=== PATIENT | female | born 1970 | race Caucasian/White ===

== ENCOUNTER 2016-12-17 00:03 | Emergency (ER) | payer OTHER ==
[2016-12-17] MEDS ORDERED: Lorazepam 2 MG/ML VIAL ONE (00:30)
[2016-12-17] MEDS ORDERED: Acetaminophen 500 MG TAB ONE (00:31)
--- NOTE | 2016-12-17 01:24 | ERRECORD ---
[facility] EMERGENCY RECORD PAST MEDICAL HISTORY (00:12 LU) MEDICAL HISTORY: Flu vaccine up to date, Date of immunization: 2015, Tetanus immunization up to date, Date of immunization: w/in last 10 yrs, Pneumococcal vaccine up to date, Date of immunization: 2011 Past medical history includes gynecologic history, endometriosis, Past medical history includes history of malignancy, primary site breast, treated with chemotherapy, treated with surgery, double mastectomy 09/28/2011, Past medical history includes history of obesity. DIABETES. FEMALE SURGICAL HISTORY: Surgical history of appendectomy, Date of surgery 05/2003, Surgical history of hysterectomy, Notes: SANDRA, Surgical history of mastectomy, of both breasts, Date of surgery 09/28/2011, Surgical history of orthopedic surgery, right knee, Date of surgery 1986, Notes: meniscotomy. PSYCHIATRIC HISTORY: Psychiatric history includes, anxiety. SOCIAL HISTORY: Patient denies alcohol use, Patient denies drug use, Patient has no smoking history. KNOWN ALLERGIES latex gloves NKDA (Unconfirmed) CURRENT MEDICATIONS Monique: TABLET : Strength - 180 mg : ORAL Patient Dose: once a day. (00:13 ) Lexapro: TABLET : Strength - 10 mg : ORAL Patient Dose: once a day. (00:13 LU) metFORMIN: TABLET : Strength - 500 mg : ORAL Patient Dose: 1 tab(s) Oral 2 times a day. (00:14 LU) omeprazole: CAPSULE,DELAYED RELEASE (ENTERIC COATED) : Strength - 20 mg : ORAL Patient Dose: 1 tab(s) Oral once a day. (00:14 LU) VITAL SIGNS VITAL SIGNS: BP: 183/98, Pulse: 89, Resp: 22, Temp: 98.0 (Oral), Pain: 0, O2 sat: 99 on Room Air, Time: 12/17/2016 00:08. (00:08 LU) BP: 135/93, Pulse: 78, Resp: 20 (Non-Labored), Pain: 0, O2 sat: 98 on Room Air, Time: 12/17/2016 00:24. (00:24 KSPL) BP: 171/88, Pulse: 67, Resp: 20 (Non-Labored), Pain: 2, O2 sat: 97 on Room Air, Time: 12/17/2016 00:49. (00:49 KSPL) BP: 124/75, Time: 12/17/2016 01:00. (01:00 KSPL) MEDICATION ADMINISTRATION SUMMARY Drug Name: LORazepam injection, Dose Ordered: 2 mg, Route: Intramuscular, Status: Given, Time: 00:39 12/17/2016, &a-1R&a+25V*p+0X*k2503J*c202B*c15G*c2P*p-0X&a-25V&a+1R Name: Milton Bonner : 1970 F46 MedRec: [id number] AcctNum: [id number] Prepared: ThuDec 17, 2016 01:05 by Interface Page 1 of 2 pMD [facility] EMERGENCY RECORD Drug Name: Tylenol Extra Strength, Dose Ordered: 1000 mg, Route: Oral, Status: Given, Time: 00:38 12/17/2016, Detailed record available in Medication Service section. PROBLEM LIST No recorded problems DIAGNOSIS (00:51 JPIP) FINAL: PRIMARY: panic attack, ADDITIONAL: ANXIETY DISORDER UNSPECIFIED. PRESCRIPTION citalopram: TABLET : 20 mg : ORAL : Quantity: 1 Unit: tab(s) Route: ORAL Schedule: once a day (in the morning) Dispense: 30 May substitute. Refills: No Refills POTENTIAL SEVERE INTERACTION: Lexapro Override Rationale: Patient no longer on medication POTENTIAL SEVERE INTERACTION: omeprazole Override Rationale: Benefits outweigh risks. (00:41 JPIP) NOTES: No refills. (00:41 JPIP) LORazepam oral: TABLET : 1 mg : ORAL : Quantity: 1 Unit: tab(s) Route: ORAL Schedule: null Dispense: 10 May substitute. Refills: No Refills . (00:42 JPIP) NOTES: No refills. (00:42 JPIP) DISPOSITION PATIENT: Disposition Type: Discharge, Disposition: *Discharge Home, Condition: Good. (00:51 JPIP) Patient left the department. (01:02 KSPL) Horton: ZEKE=DO Zaidi Joseph KSCASSANDRA=SAVANNAH Grullon, Mikala MCFARLANER=SAVANNAH Padgett Macy &a-1R&a+25V*p+0X*d2329D*c202B*c15G*c2P*p-0X&a-25V&a+1R Name: Milton Bonner Remington : 1970 F46 MedRec: [id number] AcctNum: [id number] Prepared: Trent Dec 17, 2016 01:05 by Interface Page 2 of 2 pMD MTDD
--- NOTE | 2016-12-17 01:30 | PICIS ---
[facility] EMERGENCY RECORD TRIAGE (00:10 LU) TRIAGE NOTES: ANXIETY ATTACK-UNABLE TO CATCH BREATH. STARTED THIS EVENING AROUND 19:00. (00:10 LU) PATIENT: NAME: Milton Bonner, AGE: 46, GENDER: female, : Thu1970, TIME OF GREET: ThuDec 17, 2016 00:03, PREFERRED LANGUAGE: Kyrgyz, ETHNICITY: Not or , ECODE BILLING MAP: [facility], SSN: [id number], Zip Code: [address], KG WEIGHT: [phone], PHONE: , , , PERSON ID: [id number], PAYMENT: [employer], PCP: CLEMENCIA. (00:10 LU) COMPLAINT: PANIC ATTACK. (00:10 LU) ADMISSION: URGENCY: 4 Non Urgent, ADMISSION SOURCE: Home, TRANSPORT: CAR, BED: ER -03. (00:10 LU) ASSESSMENT: Assessment: ANXIETY ATTACK. (00:12 LU) PAIN: No complaint of pain. (00:12 LU) SIRS SCORING: Heart Rate 55-109 (0), Temp range 96.8-101.1 (0), respiratory rate 12-24 (0), Mental Status altered: no (0). (00:12 LU) TRIAGE SCREENING: Patient denies suicidal ideation, Patient denies presence of domestic violence. (00:12 LU) LMP: LMP: Hysterectomy. (00:12 LU) TREATMENTS IN PROGRESS: Medications Given, NONE. (00:12 LU) PROVIDERS: TRIAGE NURSE: Idalmis Padgett RN. (00:10 LU) VITAL SIGNS: BP 183/98, Pulse 89, Resp 22, Temp 98.0, (Oral), Pain 0, O2 Sat 99, on Room Air, Time 12/17/2016 00:08. (00:08 LU) PREVIOUS VISIT ALLERGIES: NKDA. (00:10 LU) NKDA. (00:12 LU) KNOWN ALLERGIES latex gloves NKDA (Unconfirmed) CURRENT MEDICATIONS Monique: TABLET : Strength - 180 mg : ORAL Patient Dose: once a day. (00:13 LU) Lexapro: TABLET : Strength - 10 mg : ORAL Patient Dose: once a day. (00:13 LU) metFORMIN: TABLET : Strength - 500 mg : ORAL Patient Dose: 1 tab(s) Oral 2 times a day. (00:14 LU) omeprazole: CAPSULE,DELAYED RELEASE (ENTERIC COATED) : Strength - 20 mg : ORAL Patient Dose: 1 tab(s) Oral once a day. (00:14 LU) VITAL SIGNS VITAL SIGNS: BP: 183/98, Pulse: 89, Resp: 22, Temp: 98.0 (Oral), Pain: 0, O2 sat: 99 on Room Air, Time: 12/17/2016 00:08. (00:08 LU) BP: 135/93, Pulse: 78, Resp: 20 (Non-Labored), Pain: 0, O2 sat: 98 on &a-1R&a+25V*p+0X*l5973Y*c202B*c15G*c2P*p-0X&a-25V&a+1R Name: Milton Bonner : 1970 F46 MedRec: [id number] AcctNum: [id number] Prepared: ThuDec 17, 2016 01:05 by Interface Page 1 of 4 pMD [facility] EMERGENCY RECORD Room Air, Time: 12/17/2016 00:24. (00:24 KSPL) BP: 171/88, Pulse: 67, Resp: 20 (Non-Labored), Pain: 2, O2 sat: 97 on Room Air, Time: 12/17/2016 00:49. (00:49 KSPL) BP: 124/75, Time: 12/17/2016 01:00. (01:00 KSPL) NURSING ASSESSMENT: FOCUSED (00:16 KSPL) CONSTITUTIONAL: Complex assessment performed, Patient arrives ambulatory, Gait steady, History obtained from patient, Patient appears, anxious, Patient cooperative, Patient alert, Oriented to person, place and time, Skin warm, Skin dry, Skin normal in color, Mucous membranes pink, Mucous membranes moist, Patient is well-groomed, Patient complains of anxiety attack. PAIN: Patient rates pain as 0 out of 10. EYES: Focused eye assessment finding include pupils equally round and reactive to light, Left pupil 2 mm in size, Right pupil 2 mm in size, Redness, bilaterally. NEURO: Focused neuro assessment findings include patient alert, cooperative, No facial droop noted, Speech coherent, no weakness, no numbness, No loss of consciousness. GCS: Eye opening: (4) - Spontaneous, Verbal: (5) - Oriented/conversive, Motor: (6) - Obeys commands/Spontaneous, GCS Total: 15. SAFETY: Side rails up, Cart/Stretcher in lowest position, Family at bedside, Call light within reach, Hospital ID band on, Patient in view of the nursing station. NURSING ASSESSMENT: RESPIRATORY /CHEST (00:21 KSPL) RESPIRATORY/CHEST: Breath sounds clear, Respiratory assessment findings include respiratory effort easy, Respirations regular, Conversing normally, Neck and chest exam findings include trachea midline, Chest expansion equal, Chest movement symmetrical, no signs of distress, no retractions noted. SAFETY: Side rails up, Cart/Stretcher in lowest position, Family at bedside, Call light within reach, Hospital ID band on, Patient in view of the nursing station, Notes: pt advised to concentrate on breathing and to take slow breaths, in the nose and out the mouth, pt verbalized understanding. MEDICATION ADMINISTRATION SUMMARY Drug Name: LORazepam injection, Dose Ordered: 2 mg, Route: Intramuscular, Status: Given, Time: 00:39 12/17/2016, Drug Name: Tylenol Extra Strength, Dose Ordered: 1000 mg, Route: Oral, Status: Given, Time: 00:38 12/17/2016, Detailed record available in Medication Service section. MEDICATION SERVICE LORazepam injection: Order: LORazepam injection (lorazepam) - Dose: 2 mg : Intramuscular Schedule: Now &a-1R&a+25V*p+0X*q2464E*c202B*c15G*c2P*p-0X&a-25V&a+1R Name: Milton Bonner : 1970 F46 MedRec: [id number] AcctNum: [id number] Prepared: ThuDec 17, 2016 01:05 by Interface Page 2 of 4 pMD [facility] EMERGENCY RECORD Ordered by: Craig Zaidi DO Entered by: Craig Zaidi DO ThuDec 17, 2016 00:28 , Acknowledged by: Mikala Grullon RN ThuDec 17, 2016 00:28 Documented as given by: Mikala Grullon RN ThuDec 17, 2016 00:39 Patient, Medication, Dose, Route and Time verified prior to administration. IM medication, Amount given: 2 mg, Medication administered to right deltoid, Patient appears Awake and alert- acceptable, Correct patient, time, route, dose and medication confirmed prior to administration, Patient advised of actions and side-effects prior to administration, Allergies confirmed and medications reviewed prior to administration, Patient in position of comfort, Side rails up, Cart in lowest position, Family at bedside, Call light in reach, R deltoid cleaned with alcohol and allowed to dry prior to IM admin, IM pushed slow, pt tolerated well. Tylenol Extra Strength: Order: Tylenol Extra Strength (acetaminophen) - Dose: 1000 mg : Oral Schedule: Now Ordered by: Craig Zaidi DO Entered by: Craig Zaidi DO ThuDec 17, 2016 00:28 , Acknowledged by: Mikala Grullon RN ThuDec 17, 2016 00:28 Documented as given by: Mikala Grullon RN ThuDec 17, 2016 00:38 Patient, Medication, Dose, Route and Time verified prior to administration. Amount given: 1000 mg, Site: Medication administered P.O., Patient appears Awake and alert- acceptable, Correct patient, time, route, dose and medication confirmed prior to administration, Patient advised of actions and side-effects prior to administration, Allergies confirmed and medications reviewed prior to administration, Patient in position of comfort, Side rails up, Cart in lowest position, Family at bedside, Call light in reach, pt swallowed pills with water, tolerated well. PAST MEDICAL HISTORY (00:12 LU) MEDICAL HISTORY: Flu vaccine up to date, Date of immunization: 2015, Tetanus immunization up to date, Date of immunization: w/in last 10 yrs, Pneumococcal vaccine up to date, Date of immunization: 2011 Past medical history includes gynecologic history, endometriosis, Past medical history includes history of malignancy, primary site breast, treated with chemotherapy, treated with surgery, double mastectomy 09/28/2011, Past medical history includes history of obesity. DIABETES. FEMALE SURGICAL HISTORY: Surgical history of appendectomy, Date of surgery 05/2003, Surgical history of hysterectomy, Notes: SANDRA, Surgical history of mastectomy, of both breasts, Date of surgery 09/28/2011, Surgical history of orthopedic surgery, right knee, Date of surgery 1986, Notes: meniscotomy. PSYCHIATRIC HISTORY: Psychiatric history includes, anxiety. SOCIAL HISTORY: Patient denies alcohol use, Patient denies &a-1R&a+25V*p+0X*d8414D*c202B*c15G*c2P*p-0X&a-25V&a+1R Name: Milton Bonner : 1970 F46 MedRec: [id number] AcctNum: [id number] Prepared: ThuDec 17, 2016 01:05 by Interface Page 3 of 4 pMD [facility] EMERGENCY RECORD drug use, Patient has no smoking history. EVENTS TRANSFER: Triage to Emergency Emergency Room -03. (ThuDec 17, 2016 00:10 LU) Removed from Emergency Emergency Room -03. (01:02 KSPL) O2SAT INTERPRETATION (00:32 JPIP) O2SAT: Continuous pulse oximetry, Oxygen saturation 98%, on room air, Oxygen saturation interpretation: Normal, No intervention required. PROBLEM LIST No recorded problems DIAGNOSIS (00:51 JPIP) FINAL: PRIMARY: panic attack, ADDITIONAL: ANXIETY DISORDER UNSPECIFIED. DISPOSITION PATIENT: Disposition Type: Discharge, Disposition: *Discharge Home, Condition: Good. (00:51 JPIP) Patient left the department. (01:02 KSPL) INSTRUCTION (00:43 JPIP) DISCHARGE: PANIC ATTACK, ANXIETY REACTION. SPECIAL: Follow up with Primary Care Physician within 72 hours Return to the Emergency Department for increased symptoms problems or concerns. PRESCRIPTION citalopram: TABLET : 20 mg : ORAL : Quantity: 1 Unit: tab(s) Route: ORAL Schedule: once a day (in the morning) Dispense: 30 May substitute. Refills: No Refills POTENTIAL SEVERE INTERACTION: Lexapro Override Rationale: Patient no longer on medication POTENTIAL SEVERE INTERACTION: omeprazole Override Rationale: Benefits outweigh risks. (00:41 JPIP) NOTES: No refills. (00:41 JPIP) LORazepam oral: TABLET : 1 mg : ORAL : Quantity: 1 Unit: tab(s) Route: ORAL Schedule: null Dispense: 10 May substitute. Refills: No Refills . (00:42 JPIP) NOTES: No refills. (00:42 JPIP) Horton: ZEKE=DO Zaidi Joseph KSPL=SAVANNAH Grullon, Mikala LEIGH=SAVANNAH Padgett, Idalmis &a-1R&a+25V*p+0X*p1054D*c202B*c15G*c2P*p-0X&a-25V&a+1R Name: Milton Bonner : 1970 F46 MedRec: [id number] AcctNum: [id number] Prepared: ThuDec 17, 2016 01:05 by Interface Page 4 of 4 pMD MTDD
== END 2016-12-17 01:00 | disposition home or self-care (01) ==
LOC: BURERS 00:03
DX: F41.0 Panic disorder [episodic paroxysmal anxiety] (principal); F41.9 Anxiety disorder, unspecified; E66.9 Obesity, unspecified; E11.9 Type 2 diabetes mellitus without complications
CPT/HCPCS: 96372; J2060

== ENCOUNTER 2017-12-11 01:15 | Emergency (ER) | payer OTHER ==
[2017-12-11] MEDS ORDERED: Diazepam 10 MG/2 ML SYRINGE ONE (01:40)
[2017-12-11] MEDS ORDERED: Ketorolac Tromethamine 60 MG/2 ML VIAL ONE (01:40)
--- NOTE | 2017-12-11 07:11 | RAD ---
LUMBAR SPINE 3 VIEWS: Date: 12/11/17 No acute fracture is demonstrated. There is some very slight anterior wedging of T11 and T12, but I d oubt it is acute. Unless there was pain near the thoracolumbar junction, I would tend to downplay the finding. There is disc space narrowing with osteophytes at L5-S1. If there are radicular symptoms, a MRI to investigate this area could be useful. The SI joints appear normal. IMPRESSION: 1. No definite fracture. 2. Degenerative disc disease at L5-S1. 3. Slight anterior wedging of T11 and T12, thought more likely to be old than new. Correlate with cl inical symptoms. CODE T. POS: HOME
== END 2017-12-11 02:25 | disposition home or self-care (01) ==
LOC: BURERS 01:15
DX: M54.5 Low back pain (principal); E66.9 Obesity, unspecified; E11.9 Type 2 diabetes mellitus without complications; F41.9 Anxiety disorder, unspecified; Z79.84 Long term (current) use of oral hypoglycemic drugs; Z79.899 Other long term (current) drug therapy; Z85.3 Personal history of malignant neoplasm of breast; W19.XXXA Unspecified fall, initial encounter
CPT/HCPCS: 72100; 96372; J1885; J3360

== ENCOUNTER 2018-01-13 18:30 | Emergency (ER) | payer OTHER ==
[2018-01-13 19:22] LABS: #Basophils 0.1 thou/uL (0.0-0.2); #Eosinphils 0.1 thou/uL (0.0-0.7); #Lymphocytes 3.1 thou/uL (1.20-3.40); #Monocytes 0.6 thou/uL (0.11-0.59); #Neutrophils 5.1 thou/uL (1.40-6.50); %Basophils 1.5 % (0.0-1.0); %Eosinophils 1.3 % (0.0-10.0); %Lymphocytes 34.2 % (21.0-51.0); %Monocytes 6.7 % (0.0-10.0); %Neutrophils 56.2 % (42.0-75.0); Hemoglobin 15.5 g/dL (12.0-16.0); Mean Corpuscular HGB CONC 36.2 g/dL (32.0-36.0); Mean Corpuscular Hemoglobin 30.8 pg (27.0-31.0); Mean Platelet Volume 6.7 fL (7.4-10.4); Platelet Count 291 thou/uL (130-400); RBC Distribution Width 13.1 % (11.5-14.5); Red Blood Cell (RBC) Count 5.04 mill/uL (4.20-5.40)
[2018-01-13 19:29] LABS: Prothrombin Time 12.9 SEC (12.0-14.7)
[2018-01-13 19:30] LABS: PTT 28.6 SEC (22.9-36.1)
[2018-01-13 19:39] LABS: ALT (SGPT) 15 U/L (8-55); AST (SGOT) 10 U/L (5-34); Albumin 3.8 g/dL (3.5-5.0); Alkaline Phosphatase 88 U/L (40-150); Anion Gap 14 mmol/L (10-20); BUN (Urea Nitrogen) 20 mg/dL (7.0-18.7); Bilirubin, Total 0.7 mg/dL (0.2-1.2); Calc. Creatinine Clearance 0 mL/min (70-130); Calcium 9.9 mg/dL (7.8-10.44); Carbon Dioxide 28 mmol/L (22-29); Chloride 104 mmol/L (98-107); Estimated GFR-MDRD 69; Glucose 129 mg/dL (70-105); Potassium 3.5 mmol/L (3.5-5.1); Protein, Total 6.8 g/dL (6.0-8.3); Sodium 142 mmol/L (136-145)
[2018-01-13 19:41] LABS: CKMB 0.7 ng/mL (0-6.6); Troponin I Less than 0.010 ng/mL (< 0.028)
[2018-01-13] MEDS ORDERED: Meclizine HCl 25 MG TAB ONE (20:08)
[2018-01-13] MEDS ORDERED: Diazepam 10 MG/2 ML SYRINGE ONE (20:08)
--- NOTE | 2018-01-13 20:42 | CT ---
CT OF THE BRAIN WITHOUT CONTRAST 01/13/18 The ventricles are normal in size with no shift. No intracranial bleeding, mass, or sign of stroke wa s found. The posterior fossa was unremarkable. each IAC was normal in size. The mastoid air cells are clear, as are the visible paranasal sinuses. IMPRESSION: No acute intracranial finding. POS: HOME
== END 2018-01-13 21:40 | disposition short-term general hospital (02) ==
LOC: BURERS 18:30
DX: R42 Dizziness and giddiness (principal); R20.2 Paresthesia of skin; F41.9 Anxiety disorder, unspecified
CPT/HCPCS: 70450; 80053; 82553; 84443; 84484; 85025; 85610; 85730; 93005; 94760; 96374; J3360